=== PATIENT | female | born 1960 | race Caucasian/White ===

== ENCOUNTER 2016-07-08 14:01 | Day surgery (SDC) | payer OTHER ==
[~2016-07-08] VITALS: Ht 157.5 cm; Wt 92.0 kg
[2016-07-08] VITALS (9 sets, daily range): BP systolic 115–168; BP diastolic 78–96; PULSE 74–83; RESP 10–18; Ht 157.5 cm; Wt 92.0 kg
[2016-07-08] MEDS ORDERED: ONDANSETRON 4 MG INJ IV PRN (15:00)
[2016-07-08] MEDS ORDERED: OXYCODONE/ACETAMINOPHEN (5/325) TAB PO PRN ×3 (15:00→17:30)
[2016-07-08] MEDS ORDERED: FENTAnyl 50 MCG/ML VIAL IV PRN ×2 (15:00)
[2016-07-08] MEDS ORDERED: hydrALAzine 20 MG INJ IV PRN (15:00)
[2016-07-08] MEDS ORDERED: MIDAZOLAM 1 MG/ML 2 ML INJ IV PRN (15:00)
[2016-07-08] MEDS ORDERED: morphine (1 MG/ML) 10ML SYRINGE IV PRN ×3 (15:00)
[2016-07-08] MEDS ORDERED: EPHEDrine SULFATE 50 MG/5 ML SYG IV PRN (15:00)
[2016-07-08] MEDS ORDERED: HYDROmorphONE (0.2 MG/ML) 10ML SYG IV PRN ×3 (15:00)
[2016-07-08] MEDS ORDERED: ATROPINE 1 MG/10 ML SYRINGE IV PRN (15:00)
[2016-07-08] MEDS ORDERED: DIPHENHYDRAMINE 50 MG INJ IV PRN (15:00)
[2016-07-08] MEDS ORDERED: LABETALOL HCL 20MG INJ IV PRN (15:00)
[2016-07-08] MEDS ORDERED: MEPERIDINE 25 MG INJ IV PRN (15:00)
[2016-07-08] MEDS ORDERED: PROPOFOL 100 ML ONE (15:03)
[2016-07-08] MEDS ORDERED: MIDAZOLAM 1 MG/ML 2 ML INJ ONE (15:04)
[2016-07-08] MEDS ORDERED: FENTAnyl 50 MCG/ML VIAL ONE (15:04)
[2016-07-08] MEDS ORDERED: LIDOCAINE 100 MG SYRINGE ONE (15:04)
[2016-07-08] MEDS ORDERED: FLUMAZENIL 0.5 MG INJ ONE ×2 (15:10→15:11)
--- NOTE | 2016-07-08 15:19 | HPN ---
Date/Time of Note Date/Time of Note DATE: 07/08/16 TIME: 15:19 Interval H&P Admission Note Pt. seen H&P reviewed: No system changes SHELLY ARCE MD Jul 08, 2016 15:19
[2016-07-08] MEDS ORDERED: LIDOCAINE 1% (STERILE-PAK) 30 ML INJ ONE (15:35)
[2016-07-08] MEDS ORDERED: BUPIVACAINE 0.5% (SDV) 30 ML INJ ONE (15:35)
[2016-07-08] MEDS ORDERED: PRA20 PO (15:44)
[2016-07-08] MEDS ORDERED: HYDR12.53 PO (15:44)
[2016-07-08] MEDS ORDERED: TRAM50TA2 PO (15:44)
[2016-07-08] MEDS ORDERED: AMLO-147 PO (15:44)
[2016-07-08] MEDS ORDERED: CARV12.579 PO (15:44)
[2016-07-08] MEDS ORDERED: GABA300C16 PO (15:44)
[2016-07-08] MEDS ORDERED: METF850T PO (15:44)
[2016-07-08] MEDS ORDERED: LEVO25TA59 PO (15:44)
[2016-07-08] MEDS ORDERED: BENA20TA48 PO (15:44)
[2016-07-08] MEDS ORDERED: BACITRACIN 0.9 GM OINT ONE (16:11)
--- NOTE | 2016-07-09 09:59 | OPR ---
DATE OF OPERATION: 07/08/2016 PREOPERATIVE DIAGNOSES: 1. Right carpal tunnel syndrome. 2. Flexor tenosynovitis. POSTOPERATIVE DIAGNOSES: 1. Right carpal tunnel syndrome. 2. Flexor tenosynovitis. OPERATION PERFORMED: 1. Right carpal tunnel release. 2. Flexor tenosynovectomy. 3. Application of short arm splint. SURGEON: Elias Escobedo MD DESCRIPTION OF PROCEDURE: With the patient supine on the operating table, monitored anesthesia care was provided. Ancef 1 gram IV was administered. The right upper extremity from below the tourniqu et was prepared and draped in a sterile fashion. The Esmarch bandage was applied and the tourniquet inflated to 250 mmHg. A curved incision was made overlying the carpal tunnel. Preligamentous fat was retracted. The transverse carpal ligament was divided on its ulnar aspect and the median nerve decompressed to its point of arborization in the palm. The mini meniscotome was used to complete di vision of the most distal and most proximal fibers. There was considerable tenosynovitis and a flex or tenosynovectomy was performed. The wound was irrigated with saline. Sutures of 5-0 Ethilon were used to approximate the skin. A voluminous sterile hand dressing and short arm splint were applied . The patient tolerated the procedure and left in satisfactory condition. Dictated By: ELIAS GEORGE/FARHAT Conf#: [id number] DID#: [id number]
== END 2016-07-08 18:07 | disposition home or self-care (01) ==
LOC: SDS 14:01
PROVIDERS: ATTEND Orthopaedic Surgery Hand Surgery
DX: G56.01 Carpal tunnel syndrome, right upper limb (principal); M65.9 Synovitis and tenosynovitis, unspecified; E11.9 Type 2 diabetes mellitus without complications; Z79.4 Long term (current) use of insulin; E78.5 Hyperlipidemia, unspecified; I10 Essential (primary) hypertension; E66.01 Morbid (severe) obesity due to excess calories; Z68.37 Body mass index [BMI] 37.0-37.9, adult
CPT/HCPCS: 25115; 64721; 82962; J1170; J2001; J2250; J2405; J3010; Z7512; Z7610

== ENCOUNTER 2018-01-25 20:02 | Emergency (ER) | END 2018-01-25 22:59 | disposition home or self-care (01) ==